=== PATIENT | female | born 1945 | race Caucasian/White ===

== ENCOUNTER 2024-10-31 07:50 | Outpatient (AMB) | payer MEDICARE, BC, SELFPAY ==
[2024-10-31 08:04] VITALS: BP 170/92; PULSE 61; RESP 18; TEMP 36.6; O2SAT 99; BMI 22.0
--- NOTE | 2024-10-31 08:04 | PD.ORTHCLVIS ---
Vital signs 10/31/24 08:04 Height 1.6 m Height Method Stated Weight 56.387 kg Weight Measurement Method Standing Scale BMI 22.0 BP 170/92 H Blood Pressure Source Automatic Cuff Blood Pressure Location Right Upper Arm Position Sitting Respiration 18 Pulse 61 Pulse Source Monitor Temp 97.8 F Temp Source Temporal Artery Scan Pulse Oximetry (%) 99 Oxygen Delivery Method Room Air Med/Allergies Allergies & Medications Allergies Penicillins Allergy (Intermediate, Verified 10/31/24 08:05) Hives Medication Reconciliation losartan 50 mg tablet 50 mg PO QDAY 08/18/24 [History Confirmed 10/31/24] Exam Exam Patient is in no acute distress and is cooperative with the examination today. Breathing is nonlabored. In no respiratory distress. Patient has no paraspinal tenderness. Spinal deformity [cannot] be appreciated. The gait of the patient is [nonantalgic] Bilateral extremities were evaluated and demonstrates sensation intact to light touch. Palpable pedal pulses are present. No significant edema is present. Bilateral knees were examined and the patient has full strength and range of motion.. The left hip was examined. Patient was able to flex to 90 degrees, adduct to 30 degrees, abduct to 40 degrees, internally rotate to 20 degrees, and externally rotate to 20 degrees. Patient has a negative logroll. Stinchfield is negative. The patient is nontender diffusely to touch. The right hip was examined. Patient has a positive logroll Right knee demonstrates range of motion from 0 to 110 degrees. There is some laxity in the medial lateral plane. It also has AP instability X-rays demonstrated a cementless right total knee replacement in good alignment position. I do not see any evidence of loosening. Right hip x-rays demonstrate severe arthritis with complete joint space narrowing. There is also an extensive spine fusion that can be visualized Assessment and Plan Problem List (1) Arthritis of right knee: Status: Acute (2) Arthritis of right hip: Status: Acute Plan: Patient is a 79-year-old female with a right hip arthritis of significant severity. She also has a painful right total knee replacement. We will start start by obtaining ESR and CRP. I would also like to see how much of the pain is from her hip and we will start with a cortisone injection of the right hip. I discussed with her that her right hip does feel like there is possibly some instability as well. We will see how much of this is contributing from the hip based on the injection. (3) Painful total knee replacement, right: Status: Acute Advanced Care Planning Discussion Advance care planning discussed with:: patient Office Procedures GNS Level of Care Nursing/Assessment Patient Status: Established Patient Nursing Assessment/Reassesment: Medication Reconciliation, Update PMH in EMR and Vital Signs Coordination of Care: Complex Care and Chronic Disease 1-5, Education Complex Pt/Fam, Consent,records obtained, informed consent, Results/Orders obtained and Staff clarify orders Established Patient Charge Established Patient Point Assignment: 95 Established Patient Point Charge: EP Level 3 (80-115) MA Intake Visit Data Collection New Patient or Established: Established Patient (seen at [facility] within 3 years) Reason for Visit:: HIP & KNEE PAIN Seen by Clinical Staff ONLY (RN/MA): No Verbal consent obtained for Telemed visit?: No Rubber Turner Required: No PCP or OBGYN visit in last 3 months: Yes Hx Now: No Do You Feel Safe at Home: Yes Authorities Contacted: N/A Questionairres Past Medical History Past Medical History Have you ever been diagnosed with any of the following: Neurological Problems Seizures: No Cardiology Problems Hypercholesterolemia: Yes Congestive Heart Failure: No Hypertension: Yes Respiratory Problems Chronic Obstructive Pulmonary Disease (COPD): No Smoking: No Smoking Cessation Counseling: No Smoking Exposure: No Genital/Urinary Problems Renal Disease: No Musculoskeletal Problems Arthritis: Yes Head,Eye,Nose,Throat Problems Cataracts: Yes (bilaterally) Endocrine Problems Diabetes Mellitus Type 1: No Diabetes Mellitus Type 2: No Other Problems Blood Transfusions: No Blood Transfusion Reaction: No Anesthesia Reactions: No Chicken Pox: Yes Measles: Yes Surgical History Total Knee Replacement: Yes (2 YEARS AGO BY ) Subjective Visit Visit for: new patient, hip and knee Immunization / Flu Flu Vaccine in the Last 12 Months: Yes Flu Vaccine Exclusion Criteria: Already Received History of Present Illness Chief complaint: RIGHT HIP & KNEE PAIN Date of injury / onset of symptoms: YEARS Date of 1st surgery (if applicable): 2 YEARS AGO Patient is a pleasant 79-year-old female with right hip pain that has been ongoing for over a year. She also has right knee pain since her surgery 2 years ago done in [place]. The pain is more on the tibial side. She reports the knee never got better.The hip pain is in the groin. She was found to have significant right hip arthritis. She has a history of spine surgery and has an extensive fusion Pain Pain level (0-10): 8 Pain duration: ALL DAY Pain location: groin, anterior and posterior Pain quality: aching Pain timing: night, increases with activity and stairs Associated signs & symptoms: numbness and stiffness Ambulatory data Ambulatory device: none Treatments Improvement with previous injections: No Number of Physical Therapy sessions: 15 Improvement with PT: No Improvement with NSAIDS: yes Review of Systems Review of Systems: All systems negative unless otherwise noted in HPI.
== END 2024-10-31 08:35 | disposition home or self-care (01) ==
LOC: HODSRG 07:50
PROVIDERS: PCP Orthopaedic Surgery; Referring Provider Orthopaedic Surgery; Supervising Provider Orthopaedic Surgery Adult Reconstructive Orthopaedic Surgery; Visit Provider Orthopaedic Surgery Adult Reconstructive Orthopaedic Surgery
DX: M17.11 Unilateral primary osteoarthritis, right knee (principal); M16.11 Unilateral primary osteoarthritis, right hip; T84.84XA Pain due to internal orthopedic prosthetic devices, implants and grafts, initial encounter; Y84.9 Medical procedure, unspecified as the cause of abnormal reaction of the patient, or of later complication, without mention of misadventure at the time of the procedure; I10 Essential (primary) hypertension; E78.00 Pure hypercholesterolemia, unspecified
CPT/HCPCS: 99213; G0463

== ENCOUNTER → 2024-10-31 | Outpatient (CLI) | payer MEDICARE, BC, SELFPAY ==
[2024-10-31 09:51] LABS: Sed Rate (ESR) 11 mm/hr (0-30)
[2024-10-31 10:14] LABS: C-Reactive Protein 0.6 mg/dL (0.0-0.9)
== END | disposition home or self-care (01) ==
PROVIDERS: PCP Internal Medicine; Referring Provider Orthopaedic Surgery Adult Reconstructive Orthopaedic Surgery; Visit Provider Orthopaedic Surgery Adult Reconstructive Orthopaedic Surgery
DX: M25.561 Pain in right knee (principal)
CPT/HCPCS: 36415; 85652; 86140

== ENCOUNTER 2024-12-14 14:49 | Outpatient (AMB) | payer MEDICARE, BC, SELFPAY ==
[2024-12-14 15:09] VITALS: BP 147/86; PULSE 56; RESP 18; TEMP 35.6; O2SAT 97; BMI 22.1
--- NOTE | 2024-12-14 15:09 | PD.ORTHCLVIS ---
Vital signs 12/14/24 15:09 Height 1.6 m Height Method Stated Weight 56.784 kg Weight Measurement Method Standing Scale BMI 22.1 BP 147/86 H Blood Pressure Source Automatic Cuff Blood Pressure Location Right Upper Arm Position Sitting Respiration 18 Pulse 56 L Pulse Source Monitor Temp 96.1 F L Temp Source Temporal Artery Scan Pulse Oximetry (%) 97 Oxygen Delivery Method Room Air Med/Allergies Allergies & Medications Allergies Penicillins Allergy (Intermediate, Verified 12/14/24 15:11) Hives Medication Reconciliation losartan 50 mg tablet 50 mg PO QDAY 08/18/24 [History Confirmed 12/14/24] Exam Exam Patient is in no acute distress and is cooperative with the examination today. Breathing is nonlabored. In no respiratory distress. Patient has no paraspinal tenderness. Spinal deformity [cannot] be appreciated. The gait of the patient is [nonantalgic] Bilateral extremities were evaluated and demonstrates sensation intact to light touch. Palpable pedal pulses are present. No significant edema is present. Bilateral knees were examined and the patient has full strength and range of motion.. The left hip was examined. Patient was able to flex to 90 degrees, adduct to 30 degrees, abduct to 40 degrees, internally rotate to 20 degrees, and externally rotate to 20 degrees. Patient has a negative logroll. Stinchfield is negative. The patient is nontender diffusely to touch. The right hip was examined. Patient has a positive logroll Right knee demonstrates range of motion from 0 to 110 degrees. There is some laxity in the medial lateral plane. It also has AP instability X-rays demonstrated a cementless right total knee replacement in good alignment position. I do not see any evidence of loosening. Right hip x-rays demonstrate severe arthritis with complete joint space narrowing. There is also an extensive spine fusion that can be visualized Assessment and Plan Problem List (1) Painful total knee replacement, right: Status: Acute (2) Arthritis of right knee: Status: Acute (3) Arthritis of right hip: Status: Acute Plan: Patient is a 79-year-old female with a right hip arthritis of significant severity. She has a normal ESR and CRP. I am fairly certain her knee pain is caused by her hip. We will order a diagnostic hip injection with cortisone Advanced Care Planning Discussion Advance care planning discussed with:: patient Office Procedures GNS Level of Care Nursing/Assessment Patient Status: Established Patient Nursing Assessment/Reassesment: Medication Reconciliation, Update PMH in EMR and Vital Signs Coordination of Care: Complex Care and Chronic Disease 1-5, Education Complex Pt/Fam, Consent,records obtained, informed consent, Results/Orders obtained and Staff clarify orders Established Patient Charge Established Patient Point Assignment: 95 Established Patient Point Charge: EP Level 3 (80-115) MA Intake Visit Data Collection New Patient or Established: Established Patient (seen at [facility] within 3 years) Reason for Visit:: FOLLOW UP RIGHT KNEE PAIN Seen by Clinical Staff ONLY (RN/MA): No Boom Master Required: No PCP or OBGYN visit in last 3 months: Yes Hx Now: No Do You Feel Safe at Home: Yes Authorities Contacted: N/A Questionairres Past Medical History Past Medical History Have you ever been diagnosed with any of the following: Neurological Problems Seizures: No Cardiology Problems Hypercholesterolemia: Yes Congestive Heart Failure: No Hypertension: Yes Respiratory Problems Chronic Obstructive Pulmonary Disease (COPD): No Smoking: No Smoking Cessation Counseling: No Smoking Exposure: No Genital/Urinary Problems Renal Disease: No Musculoskeletal Problems Arthritis: Yes Head,Eye,Nose,Throat Problems Cataracts: Yes (bilaterally) Endocrine Problems Diabetes Mellitus Type 1: No Diabetes Mellitus Type 2: No Other Problems Blood Transfusions: No Blood Transfusion Reaction: No Anesthesia Reactions: No Chicken Pox: Yes Measles: Yes Surgical History Total Knee Replacement: Yes (2 YEARS AGO BY ) Subjective Visit Visit for: follow up visit and knee Immunization / Flu Flu Vaccine in the Last 12 Months: Yes Flu Vaccine Exclusion Criteria: Already Received History of Present Illness Chief complaint: Right hip pain Continue is a pleasant 79-year-old female with a painful right knee replacement and right hip pain groin pain. We ordered a prior ESR and CRP to see normal. We try to figure out how much of the pain is coming from the hip versus the knee. I do suspect that her severe hip arthritis is causing her knee pain. Pain Associated signs & symptoms: none Ambulatory data Ambulatory device: none Treatments Improvement with previous injections: No Improvement with PT: No Improvement with NSAIDS: no Review of Systems Review of Systems: All systems negative unless otherwise noted in HPI.
== END 2024-12-14 15:40 | disposition home or self-care (01) ==
LOC: HODSRG 14:49
PROVIDERS: PCP Internal Medicine; Referring Provider Internal Medicine; Supervising Provider Orthopaedic Surgery Adult Reconstructive Orthopaedic Surgery; Visit Provider Orthopaedic Surgery Adult Reconstructive Orthopaedic Surgery
DX: M17.11 Unilateral primary osteoarthritis, right knee (principal); M16.11 Unilateral primary osteoarthritis, right hip; T84.84XD Pain due to internal orthopedic prosthetic devices, implants and grafts, subsequent encounter; Y84.9 Medical procedure, unspecified as the cause of abnormal reaction of the patient, or of later complication, without mention of misadventure at the time of the procedure; Z96.651 Presence of right artificial knee joint; I10 Essential (primary) hypertension; E78.00 Pure hypercholesterolemia, unspecified
CPT/HCPCS: 99213; G0463

== ENCOUNTER → 2025-01-03 | Outpatient (CLI) | payer MEDICARE, BC, SELFPAY ==
[2025-01-03 09:01] LABS: Albumin, Serum 4.2 gm/dL (3.4-4.8); Anion Gap 7 (7-16); BUN/Creatinine Ratio 20 Ratio (12-20); Blood Urea Nitrogen 18 mg/dL (9-23); Calcium 9.5 mg/dL (8.3-10.6); Calcium (Corrected) 9.5 mg/dL (8.5-10.1); Carbon Dioxide 30.1 mMol/L (20.0-31.0); Chloride 109 mMol/L (98-107); Creatinine (Component) 0.9 mg/dL (0.6-1.3); Glucose 95 mg/dL (74-106); Osmolality,Calculated 292 (275-295); Phosphorous 4.1 mg/dL (2.4-5.1); Potassium 4.3 mMol/L (3.4-5.1); Sodium 146 mMol/L (136-145); eGFR > 60 See Note
== END | disposition home or self-care (01) ==
LOC: COPL 07:39
PROVIDERS: PCP Internal Medicine; Referring Provider Internal Medicine; Visit Provider Internal Medicine
DX: I10 Essential (primary) hypertension (principal)
CPT/HCPCS: 36415; 80069

== ENCOUNTER → 2025-01-04 | Outpatient (CLI) | payer MEDICARE, BC, SELFPAY ==
--- NOTE | 2025-01-04 13:00 | XR_ITS ---
Examination: Steroid injection right hip joint with imaging guidance Fluoroscopy AP right hip single view. Exam date and time: January 04, 2025 1244 hrs. Indications: Diagnosis primary right hip unilateral osteoarthritis, hip pain several months Informed consent provided. Technique: A timeout was completed verifying correct patient, procedure, site, positioning. The patient was placed in supine position appropriate for the steroid injection The patient's site was prepped and draped in sterile fashion 5 cc 1% lidocaine administered locally for anesthesia. Sterile drape applied, maximum barrier sterile technique. Utilizing fluoroscopic guidance, 23-gauge needle placed in the right hip joint 1 cc Kenalog 40 in 5 cc 0.25% Marcaine introduced into the right hip joint The patient was in satisfactory and stable condition on completion of the procedure Attending radiologist was present for the entire procedure Estimated blood loss 0 cc. Impression: Successful steroid injection right hip joint with imaging guidance Fluoroscopy 0.1 minute radiation dose 0.76 milligray 1 spot fluoroscopic chest film
== END | disposition home or self-care (01) ==
LOC: SIRX 12:32
PROVIDERS: PCP Internal Medicine; Referring Provider Orthopaedic Surgery Adult Reconstructive Orthopaedic Surgery; Visit Provider Orthopaedic Surgery Adult Reconstructive Orthopaedic Surgery
DX: M16.11 Unilateral primary osteoarthritis, right hip (principal)
CPT/HCPCS: 20610; 77002

== ENCOUNTER 2025-04-06 07:51 | Outpatient (AMB) | payer MEDICARE, BC, SELFPAY ==
--- NOTE | 2025-04-06 08:02 | ORTHONT_ITS ---
Vital signs 04/06/25 08:03 Height 1.6 m Height Method Stated Weight 55.338 kg Weight Measurement Method Standing Scale BMI 21.6 BP 155/84 H Blood Pressure Source Automatic Cuff Blood Pressure Location Right Upper Arm Position Sitting Respiration 18 Pulse 55 L Pulse Source Monitor Temp 97.9 F Temp Source Temporal Artery Scan Pulse Oximetry (%) 95 Oxygen Delivery Method Room Air Med/Allergies Allergies & Medications Allergies Penicillins Allergy (Intermediate, Verified 04/06/25 08:05) Hives Medication Reconciliation losartan 50 mg tablet 50 mg PO QDAY 08/18/24 [History Confirmed 04/06/25] meloxicam 7.5 mg tablet 7.5 mg PO QDAY #45 tabs 04/06/25 [Rx] Exam Exam Patient is in no acute distress and is cooperative with the examination today. Breathing is nonlabored. In no respiratory distress. Patient has no paraspinal tenderness. Spinal deformity [cannot] be appreciated. The gait of the patient is [nonantalgic] Bilateral extremities were evaluated and demonstrates sensation intact to light touch. Palpable pedal pulses are present. No significant edema is present. Bilateral knees were examined and the patient has full strength and range of motion.. The left hip was examined. Patient was able to flex to 90 degrees, adduct to 30 degrees, abduct to 40 degrees, internally rotate to 20 degrees, and externally rotate to 20 degrees. Patient has a negative logroll. Stinchfield is negative. The patient is nontender diffusely to touch. The right hip was examined. Patient has a positive logroll Right knee demonstrates range of motion from 0 to 110 degrees. There is some laxity in the medial lateral plane. It also has AP instability X-rays demonstrated a cementless right total knee replacement in good alignment position. I do not see any evidence of loosening. Right hip x-rays demonstrate severe arthritis with complete joint space narrowing. There is also an extensive spine fusion that can be visualized Assessment and Plan Problem List (1) Painful total knee replacement, right: Status: Acute (2) Arthritis of right knee: Status: Acute (3) Arthritis of right hip: Status: Acute Plan: Patient is a 79-year-old female with a right hip arthritis of significant severity. She has a normal ESR and CRP. I am fairly certain her knee pain is caused by her hip. Her hip pain also went away as well as her knee pain with a cortisone injection. We thus discussed total hip replacement is a reasonable option. She has failed conservative treatment including anti-inflammatories and activity modification. We thus discussed total hip replacement is reasonable option. I would perform this through an anterior approach. The nature and purpose of the total hip replacement, alternative method(s) of treatment, the material risks involved, and the possibility of complications were fully explained to the patient. The patient does NOT have any of the following contraindications to ALMA: - Active infection of the hip joint, OR - Active systemic bacteremia, OR - Active skin infection or open wound at surgical site, OR - Neuropathic arthritis, OR - Severe, rapidly progressive neurological disease, OR - Severe medical condition that makes risks of the surgery outweigh the potential benefit The patient was told the most common risks and complications associated with a total hip replacement include, but are not limited to: blood clots in the leg, fatal pulmonary embolism, dislocation of the prosthesis, intraoperative and postoperative fractures of the femur or acetabulum, infection, failure of the prosthesis or grafting materials, complications from anesthesia, reactions to blood transfusions, postoperative leg length inequality, instability of the hip replacement, nerve damage or injury, vascular injury, delayed wound healing, infection, other injury or even . In addition, there are risks associated with anesthesia given during this operation. Also, the patient was told that after undergoing a total hip replacement there may still be persistent pain or disability. The patient was informed that the success of this operation in part depends upon the mechanical devices which are going to be implanted and that these devices can fail or malfunction, and may need to be repaired or replaced and there are no guarantees as to the longevity of this device or its parts and that it or its parts could fail prematurely. The patient was also notified that during the course of surgery, there may be a need to use bone graft from donors, and that any bone graft used will be carefully screened for communicable diseases, including AIDS, hepatitis, Rusty-Creutzfeldt, or other diseases, but despite the screening procedures, there is a small chance that they could contract one of these diseases. Finally, the patient was asked to follow completely and fully with all advice and recommended treatments, and that recovery and ultimate outcome are affected by their compliance with recommended treatment. We discussed the risks, benefits and treatment alternatives, and the patient is interested in proceeding with surgery. We will try to set this up as expeditiously as possible. Advanced Care Planning Discussion Advance care planning discussed with:: patient Office Procedures GNS Level of Care Nursing/Assessment Patient Status: Established Patient Nursing Assessment/Reassesment: Medication Reconciliation, Update PMH in EMR and Vital Signs Coordination of Care: Complex Care and Chronic Disease 1-5, Education Complex Pt/Fam, Consent,records obtained, informed consent, 1 Ins Authorization, Results/Orders obtained and Staff clarify orders Established Patient Charge Established Patient Point Assignment: 110 Established Patient Point Charge: EP Level 3 (80-115) MA Intake Visit Data Collection New Patient or Established: Established Patient (seen at [facility] within 3 years) Reason for Visit:: REQ HIP SX Seen by Clinical Staff ONLY (RN/MA): No Verbal consent obtained for Telemed visit?: No New Client Banking Services Clerk Required: No PCP or OBGYN visit in last 3 months: Yes Hx Now: No Do You Feel Safe at Home: Yes Authorities Contacted: N/A Questionairres Past Medical History Past Medical History Have you ever been diagnosed with any of the following: Neurological Problems Seizures: No Cardiology Problems Hypercholesterolemia: Yes Congestive Heart Failure: No Hypertension: Yes Respiratory Problems Chronic Obstructive Pulmonary Disease (COPD): No Smoking: No Smoking Cessation Counseling: No Smoking Exposure: No Genital/Urinary Problems Renal Disease: No Musculoskeletal Problems Arthritis: Yes Head,Eye,Nose,Throat Problems Cataracts: Yes (bilaterally) Endocrine Problems Diabetes Mellitus Type 1: No Diabetes Mellitus Type 2: No Other Problems Blood Transfusions: No Blood Transfusion Reaction: No Anesthesia Reactions: No Chicken Pox: Yes Measles: Yes Surgical History Total Knee Replacement: Yes (2 YEARS AGO BY ) Subjective Visit Visit for: follow up visit and hip Immunization / Flu Flu Vaccine in the Last 12 Months: No Flu Vaccine Exclusion Criteria: No Exclusion Criteria History of Present Illness Chief complaint: Requesting hip surgery Continue is a pleasant 79-year-old female with a painful right knee replacement and right hip pain groin pain. She had a right hip injection 3 months ago and this provided dramatic relief. She reports all the pain in her knee actually went away as well. She reports that she had complete pain relief for about 3 months and is now starting to wear off Personal History Occupation: retired [employer] PMH: none Pain Pain level (0-10): 7 Pain duration: all day Pain location: groin and anterior Pain quality: sharp, dull and aching Pain timing: increases with activity Associated signs & symptoms: stiffness (knee) Ambulatory data Ambulatory device: none Treatments Number of previous injections: 1 Improvement with previous injections: Yes Improvement with PT: No Improvement with NSAIDS: no Review of Systems Review of Systems: All systems negative unless otherwise noted in HPI.
[2025-04-06 08:03] VITALS: BP 155/84; PULSE 55; RESP 18; TEMP 36.6; O2SAT 95; BMI 21.6
--- NOTE | 2025-04-06 08:22 | XR_ITS ---
Examination:Right hip AP, lateral, AP pelvis 3 views Technique: Hip AP lateral, AP pelvis, 3 views Exam date and time:April 06, 2025 0835 hours INDICATIONS: Right hip pain 2 years. FINDINGS: Advanced right hip osteoarthritis, severe narrowing right hip joint No hip fracture Moderate narrowing left hip joint Bones of the pelvis intact Prominent osteopenia IMPRESSION: Advanced right hip osteoarthritis.
== END 2025-04-06 08:33 | disposition home or self-care (01) ==
LOC: HODSRG 07:51
PROVIDERS: PCP Internal Medicine; Referring Provider Internal Medicine; Supervising Provider Orthopaedic Surgery Adult Reconstructive Orthopaedic Surgery; Visit Provider Orthopaedic Surgery Adult Reconstructive Orthopaedic Surgery
DX: T84.84XD Pain due to internal orthopedic prosthetic devices, implants and grafts, subsequent encounter (principal); Y84.9 Medical procedure, unspecified as the cause of abnormal reaction of the patient, or of later complication, without mention of misadventure at the time of the procedure; M17.11 Unilateral primary osteoarthritis, right knee; M16.11 Unilateral primary osteoarthritis, right hip; I10 Essential (primary) hypertension; E78.00 Pure hypercholesterolemia, unspecified; M25.551 Pain in right hip
CPT/HCPCS: 73502; 99213; G0463

== ENCOUNTER → 2025-04-19 | Outpatient (CLI) | payer MEDICARE, BC, SELFPAY ==
[2025-04-19 10:14] LABS: Collection Type, Urine Clean Catch
[2025-04-19 10:39] LABS: Basophils # (Auto) 0.1 Thou/mm3 (0.0-0.2); Basophils % (Auto) 1 % (0-2.5); Eosinophils # (Auto) 0.1 Thou/mm3 (0.0-0.5); Eosinophils % (Auto) 2 % (0-10); Hematocrit 40.2 % (36.0-46.0); Hemoglobin 13.6 g/dL (12.0-16.0); Immature Granulocytes % (Auto) 0 % (0-0); Immature Granulocytes Auto 0.01 Thou/mm3 (0.00-0.00); Lymphocytes # (Auto) 1.6 Thou/mm3 (1.0-4.8); Lymphocytes % (Auto) 30 % (10-50); Mean Corpuscular HGB Conc 33.8 g/dl (31.0-37.0); Mean Corpuscular Volume 89 fL (80-100); Monocytes # (Auto) 0.4 Thou/mm3 (0.0-0.8); Monocytes % (Auto) 8 % (0-12); Neutrophils # (Auto) 3.1 Thou/mm3 (1.8-7.7); Neutrophils % (Auto) 59 % (37-80); Nucleated Red Blood Cell % 0 /100 WBC (0); Platelet Count 279 Thou/mm3 (140-440); RDW Standard Deviation 40.5 fL (36.4-46.3); Red Blood Count 4.54 Miln/mm3 (4.00-5.20); White Blood Count 5.2 Thou/mm3 (3.6-11.0)
[2025-04-19 10:47] LABS: Bilirubin,Urine Negative (Negative); Blood,Urine Negative (Negative); Clarity,Urine Clear (Clear/Hazy); Color,Urine Yellow (Lt Yel-Yel); Glucose, Urine Negative (Negative); Ketones,Urine Negative (Negative); Leukocyte Esterase,Urine Negative (Negative); Nitrite,Urine Negative (Negative); PH,Urine 6.5 (5.0-7.0); Protein,Urine Trace (Neg - Trace); RBC,Urine 8 /hpf (0-3); Specific Gravity,Urine 1.024 (1.001-1.035); Squamous Epithelial Cell,Urine 1 /hpf (0-5); Urobilinogen,Urine Negative mg/dL (0.0-1.0); WBC,Urine 1 /hpf (0-5)
[2025-04-19 10:52] LABS: Alanine Aminotransferase 24 U/L (10-49); Albumin, Serum 4.3 gm/dL (3.4-4.8); Albumin/Globulin Ratio 1.9 (1.2-2.2); Alkaline Phosphatase 69 U/L (46-116); Anion Gap 5 (7-16); Aspartate Amino Transferase 23 U/L (0-34); BUN/Creatinine Ratio 13 Ratio (12-20); Blood Urea Nitrogen 12 mg/dL (9-23); Calcium 8.9 mg/dL (8.3-10.6); Calcium (Corrected) 8.9 mg/dL (8.5-10.1); Carbon Dioxide 28.6 mMol/L (20.0-31.0); Chloride 108 mMol/L (98-107); Creatinine (Component) 0.9 mg/dL (0.6-1.3); Globulin 2.3 gm/dL (2.3-3.5); Glucose 99 mg/dL (74-106); Osmolality,Calculated 282 (275-295); Partial Thromboplastin Time 26.2 Seconds (22.0-36.0); Potassium 4.3 mMol/L (3.4-5.1); Prothrombin Time 10.7 Seconds (9.0-12.2); Sodium 142 mMol/L (136-145); Total Protein 6.6 gm/dL (5.7-8.2); eGFR > 60 See Note
== END | disposition home or self-care (01) ==
LOC: COPL 09:36
PROVIDERS: PCP Internal Medicine; Referring Provider Orthopaedic Surgery Adult Reconstructive Orthopaedic Surgery; Visit Provider Orthopaedic Surgery Adult Reconstructive Orthopaedic Surgery
DX: Z01.818 Encounter for other preprocedural examination (principal); I10 Essential (primary) hypertension; M25.561 Pain in right knee
CPT/HCPCS: 36415; 80053; 81001; 85025; 85610; 85730

== ENCOUNTER 2025-05-01 12:54 | Outpatient (AMB) | payer MEDICARE, BC, SELFPAY ==
--- NOTE | 2025-05-01 13:11 | ORTHONT_ITS ---
Vital signs 05/01/25 13:12 Height 1.6 m Height Method Stated Weight 55.962 kg Weight Measurement Method Standing Scale BMI 21.8 BP 147/79 H Blood Pressure Source Automatic Cuff Blood Pressure Location Right Upper Arm Position Sitting Respiration 18 Pulse 56 L Pulse Source Monitor Temp 97.7 F Temp Source Temporal Artery Scan Pulse Oximetry (%) 95 Oxygen Delivery Method Room Air Med/Allergies Allergies & Medications Allergies Penicillins Allergy (Intermediate, Verified 05/01/25 13:13) Hives Medication Reconciliation losartan 50 mg tablet 50 mg PO QDAY 08/18/24 [History Confirmed 05/01/25] meloxicam 7.5 mg tablet 7.5 mg PO QDAY #45 tabs 04/06/25 [Rx Confirmed 05/01/25] Exam Exam Patient is in no acute distress and is cooperative with the examination today. Breathing is nonlabored. In no respiratory distress. Patient has no paraspinal tenderness. Spinal deformity [cannot] be appreciated. The gait of the patient is [nonantalgic] Bilateral extremities were evaluated and demonstrates sensation intact to light touch. Palpable pedal pulses are present. No significant edema is present. Bilateral knees were examined and the patient has full strength and range of motion.. The left hip was examined. Patient was able to flex to 90 degrees, adduct to 30 degrees, abduct to 40 degrees, internally rotate to 20 degrees, and externally rotate to 20 degrees. Patient has a negative logroll. Stinchfield is negative. The patient is nontender diffusely to touch. The right hip was examined. Patient has a positive logroll Right knee demonstrates range of motion from 0 to 110 degrees. There is some laxity in the medial lateral plane. It also has AP instability X-rays demonstrated a cementless right total knee replacement in good alignment position. I do not see any evidence of loosening. Right hip x-rays demonstrate severe arthritis with complete joint space narrowing. There is also an extensive spine fusion that can be visualized Assessment and Plan Problem List (1) Painful total knee replacement, right: Status: Acute (2) Arthritis of right knee: Status: Acute (3) Arthritis of right hip: Status: Acute Plan: Patient is a 79-year-old female with a right hip arthritis of significant severity. She has a normal ESR and CRP. I am fairly certain her knee pain is caused by her hip. Her hip pain also went away as well as her knee pain with a cortisone injection. We thus discussed total hip replacement is a reasonable option. She has failed conservative treatment including anti-inflammatories and activity modification. We thus discussed total hip replacement is reasonable option. I would perform this through an anterior approach. I would plan to do this with dual mobility implants. The nature and purpose of the total hip replacement, alternative method(s) of treatment, the material risks involved, and the possibility of complications were fully explained to the patient. The patient does NOT have any of the following contraindications to ALMA: - Active infection of the hip joint, OR - Active systemic bacteremia, OR - Active skin infection or open wound at surgical site, OR - Neuropathic arthritis, OR - Severe, rapidly progressive neurological disease, OR - Severe medical condition that makes risks of the surgery outweigh the potential benefit The patient was told the most common risks and complications associated with a total hip replacement include, but are not limited to: blood clots in the leg, fatal pulmonary embolism, dislocation of the prosthesis, intraoperative and postoperative fractures of the femur or acetabulum, infection, failure of the prosthesis or grafting materials, complications from anesthesia, reactions to blood transfusions, postoperative leg length inequality, instability of the hip replacement, nerve damage or injury, vascular injury, delayed wound healing, infection, other injury or even . In addition, there are risks associated with anesthesia given during this operation. Also, the patient was told that after undergoing a total hip replacement there may still be persistent pain or disability. The patient was informed that the success of this operation in part depends upon the mechanical devices which are going to be implanted and that these devices can fail or malfunction, and may need to be repaired or replaced and there are no guarantees as to the longevity of this device or its parts and that it or its parts could fail prematurely. The patient was also notified that during the course of surgery, there may be a need to use bone graft from donors, and that any bone graft used will be carefully screened for communicable diseases, including AIDS, hepatitis, Rusty-Creutzfeldt, or other diseases, but despite the screening procedures, there is a small chance that they could contract one of these diseases. Finally, the patient was asked to follow completely and fully with all advice and recommended treatments, and that recovery and ultimate outcome are affected by their compliance with recommended treatment. We discussed the risks, benefits and treatment alternatives, and the patient is interested in proceeding with surgery. We will try to set this up as expeditiously as possible. Advanced Care Planning Discussion Advance care planning discussed with:: patient Office Procedures GNS Level of Care Nursing/Assessment Patient Status: Established Patient Nursing Assessment/Reassesment: Medication Reconciliation, Update PMH in EMR and Vital Signs Coordination of Care: Complex Care and Chronic Disease 1-5, Education Complex Pt/Fam, Consent,records obtained, informed consent, Results/Orders obtained and Staff clarify orders Established Patient Charge Established Patient Point Assignment: 95 Established Patient Point Charge: EP Level 3 (80-115) MA Intake Visit Data Collection New Patient or Established: Established Patient (seen at [facility] within 3 years) Reason for Visit:: PRE-OP FOLLOW UP Seen by Clinical Staff ONLY (RN/MA): No Verbal consent obtained for Telemed visit?: No Senior Business Consultant Required: No PCP or OBGYN visit in last 3 months: Yes Hx Now: No Do You Feel Safe at Home: Yes Authorities Contacted: N/A Questionairres Past Medical History Past Medical History Have you ever been diagnosed with any of the following: Neurological Problems Seizures: No Cardiology Problems Hypercholesterolemia: Yes Congestive Heart Failure: No Hypertension: Yes Respiratory Problems Chronic Obstructive Pulmonary Disease (COPD): No Smoking: No Smoking Cessation Counseling: No Smoking Exposure: No Genital/Urinary Problems Renal Disease: No Musculoskeletal Problems Arthritis: Yes Head,Eye,Nose,Throat Problems Cataracts: Yes (bilaterally) Endocrine Problems Diabetes Mellitus Type 1: No Diabetes Mellitus Type 2: No Other Problems Blood Transfusions: No Blood Transfusion Reaction: No Anesthesia Reactions: No Chicken Pox: Yes Measles: Yes Surgical History Total Knee Replacement: Yes (2 YEARS AGO BY ) Subjective Visit Visit for: follow up visit, hip and knee Immunization / Flu Flu Vaccine in the Last 12 Months: No Flu Vaccine Exclusion Criteria: No Exclusion Criteria History of Present Illness Chief complaint: PRE OP RIGHT ALMA/FOLLOW UP CLEARANCE Continue is a pleasant 79-year-old female with a painful right knee replacement and right hip pain groin pain. She had a right hip injection 3 months ago and this provided dramatic relief. She reports all the pain in her knee actually went away as well. She reports that she had complete pain relief for about 3 m onths and is now starting to wear off. Personal History Occupation: RETIRED Red flag PMH: none Pain Pain level (0-10): 7 Pain duration: CONSTANT Pain location: inside (medial), outside (lateral), anterior and posterior Pain quality: sharp, dull and aching Pain timing: increases with activity Associated signs & symptoms: stiffness Ambulatory data Ambulatory device: none Treatments Number of previous injections: 1 Improvement with previous injections: No Improvement with PT: No Improvement with NSAIDS: no Review of Systems Review of Systems: All systems negative unless otherwise noted in HPI.
[2025-05-01 13:12] VITALS: BP 147/79; PULSE 56; RESP 18; TEMP 36.5; O2SAT 95; BMI 21.8
== END 2025-05-01 13:31 | disposition home or self-care (01) ==
LOC: HODSRG 12:54
PROVIDERS: PCP Internal Medicine; Referring Provider Internal Medicine; Supervising Provider Orthopaedic Surgery Adult Reconstructive Orthopaedic Surgery; Visit Provider Orthopaedic Surgery Adult Reconstructive Orthopaedic Surgery
DX: T84.84XD Pain due to internal orthopedic prosthetic devices, implants and grafts, subsequent encounter (principal); M17.11 Unilateral primary osteoarthritis, right knee; M16.11 Unilateral primary osteoarthritis, right hip; I10 Essential (primary) hypertension; E78.00 Pure hypercholesterolemia, unspecified
CPT/HCPCS: 99213; G0463

== ENCOUNTER → 2025-05-01 | Outpatient (CLI) | payer MEDICARE, BC, SELFPAY ==
--- NOTE | 2025-05-01 09:15 | XR_ITS ---
Examination: Screening digital mammography, bilateral Computer aided detection 3-D breast Tomosynthesis, bilateral Date and time of exam: May 01, 2025 0902 hours Compared to mammograms dating to June 20, 2018 Indication: Screening Technique: Nonmagnified MLO, CC views of the breasts to been obtained, reconstructed from 3-D Tomosynthesis images. R2 computer aided detection program utilized for evaluation of suspicious masses and/or abnormal calcifications. 3-D Tomosynthesis images obtained. Findings: The breasts are heterogeneously dense, which may obscure small masses 20 mm focal asymmetry inner upper right breast Impression: BI-RADS Category 0: Incomplete: Need additional imaging evaluation Recommend follow-up spot tomographic views of 20 mm focal asymmetry inner upper right breast as well as bilateral breast sonography to complete the workup.
== END | disposition home or self-care (01) ==
PROVIDERS: PCP Internal Medicine; Referring Provider Internal Medicine; Visit Provider Internal Medicine
DX: Z12.31 Encounter for screening mammogram for malignant neoplasm of breast (principal); N64.89 Other specified disorders of breast
CPT/HCPCS: 77063; 77067

== ENCOUNTER → 2025-05-16 | Outpatient (CLI) | payer MEDICARE, BC, SELFPAY ==
--- NOTE | 2025-05-16 08:00 | XR_ITS ---
Examination: CT lower extremities without contrast. 2-D sagittal reconstructions. 2-D coronal reconstructions. 3-D reconstructions. Date and time of exam:May 16, 2025 0833 hours INDICATIONS: Diagnosis unilateral primary osteoarthritis right hip, right hip pain one year CTDI: vol (mGy):8.92 DLP: (mGycm):476 Technique: Multiple 1.25 mm axial sections of the bilateral lower extremities without intravenous contrast have been obtained. 2-D sagittal and coronal reconstructions have been obtained. 3-D reconstructions have been obtained. Low dose protocols were performed. One or more of the following dose reduction techniques were used; automated exposure control, adjustment of the mA and/or KV according to patient size, use of iterative reconstruction technique. Findings: Severe osteopenia Advanced right hip osteoarthritis, severe joint space narrowing [id number] No right hip fracture Moderate osteoarthritis left hip joint No fracture Total right knee arthroplasty. Satisfactory alignment. No loosening of the prosthetic components Moderate to advanced narrowing medial joint space left knee, moderate narrowing lateral patellofemoral joints left knee IMPRESSION: Advanced right hip osteoarthritis, severe joint space narrowing [id number]
== END | disposition home or self-care (01) ==
LOC: CCTX 08:18
PROVIDERS: PCP Internal Medicine; Referring Provider Orthopaedic Surgery Adult Reconstructive Orthopaedic Surgery; Visit Provider Orthopaedic Surgery Adult Reconstructive Orthopaedic Surgery
DX: M16.11 Unilateral primary osteoarthritis, right hip (principal)
CPT/HCPCS: 72192; 73700

== ENCOUNTER 2025-05-23 05:40 | Day surgery (SDC) | payer MEDICARE, BC, SELFPAY ==
--- NOTE | 2025-05-22 06:50 | EKG_ITS ---
[facility] Test Date: 2025-05-22 Pat Name: MORGAN AVINA Department: Room: - Gender: Female Anesthesiology Crna: ELICEO : 1945 Requested By: Ish Fallon Order Number: [id number] Reading MD: Ish Fallon Measurements Intervals [place] Rate: 48 P: 56 ND: 161 QRS: -45 QRSD: 149 T: -31 QT: 450 QTc: 405 Interpretive Statements SINUS BRADYCARDIA RIGHT BUNDLE BRANCH BLOCK [120+ ms QRS DURATION, UPRIGHT V1, 40+ ms S IN I/aVL/V4/V5/V6] LEFT ANTERIOR FASCICULAR BLOCK [QRS AXIS <= -45, QR IN I, RS IN II] MODERATE T-WAVE ABNORMALITY, CONSIDER LATERAL ISCHEMIA [-0.1+ mV T WAVE IN I/aVL/V5/V6] MODERATE T-WAVE ABNORMALITY, CONSIDER INFERIOR ISCHEMIA [-0.1+ mV T WAVE IN II/aVF] Compared to ECG 05/11/2022 13:57:30 No significant changes /store/S0/[id number].pdf
[2025-05-22 08:14] VITALS: BMI 20.8
[2025-05-22 09:26] LABS: Basophils # (Auto) 0.1 Thou/mm3 (0.0-0.2); Basophils % (Auto) 1 % (0-2.5); Eosinophils # (Auto) 0.1 Thou/mm3 (0.0-0.5); Eosinophils % (Auto) 2 % (0-10); Hematocrit 41.2 % (36.0-46.0); Hemoglobin 14.0 g/dL (12.0-16.0); Immature Granulocytes Auto 0.02 Thou/mm3 (0.00-0.00); Lymphocytes # (Auto) 1.3 Thou/mm3 (1.0-4.8); Lymphocytes % (Auto) 21 % (10-50); Mean Corpuscular HGB Conc 34.0 g/dl (31.0-37.0); Mean Corpuscular Hemoglobin 30.0 pg (25.0-35.0); Mean Corpuscular Volume 88 fL (80-100); Monocytes # (Auto) 0.5 Thou/mm3 (0.0-0.8); Monocytes % (Auto) 8 % (0-12); Neutrophils # (Auto) 4.2 Thou/mm3 (1.8-7.7); Neutrophils % (Auto) 68 % (37-80); Nucleated Red Blood Cell # 0.00 Thou/mm3 (0.00-0.00); Nucleated Red Blood Cell % 0 /100 WBC (0); Platelet Count 279 Thou/mm3 (140-440); RDW Standard Deviation 39.8 fL (36.4-46.3); Red Blood Count 4.67 Miln/mm3 (4.00-5.20); White Blood Count 6.2 Thou/mm3 (3.6-11.0)
[2025-05-22 09:35] LABS: INR 1.0 (0.9-1.3); Partial Thromboplastin Time 27.3 Seconds (22.0-36.0); Prothrombin Time 10.6 Seconds (9.0-12.2)
[2025-05-22 09:38] LABS: Alanine Aminotransferase 13 U/L (10-49); Albumin, Serum 4.6 gm/dL (3.4-4.8); Albumin/Globulin Ratio 2.2 (1.2-2.2); Alkaline Phosphatase 81 U/L (46-116); Anion Gap 6 (7-16); Aspartate Amino Transferase 17 U/L (0-34); BUN/Creatinine Ratio 14 Ratio (12-20); Bilirubin,Total 2.1 mg/dL (0.3-1.2); Blood Urea Nitrogen 14 mg/dL (9-23); Calcium 10.2 mg/dL (8.3-10.6); Calcium (Corrected) 10.2 mg/dL (8.5-10.1); Carbon Dioxide 31.0 mMol/L (20.0-31.0); Chloride 105 mMol/L (98-107); Creatinine (Component) 1.0 mg/dL (0.6-1.3); Estimated Creatinine Clearance 40.7 mL/min (>60); Globulin 2.1 gm/dL (2.3-3.5); Glucose 100 mg/dL (74-106); Osmolality,Calculated 283 (275-295); Potassium 4.2 mMol/L (3.4-5.1); Sodium 142 mMol/L (136-145); Total Protein 6.7 gm/dL (5.7-8.2); eGFR 58 See Note
[2025-05-23] VITALS (12 sets, daily range): BP systolic 122–161; BP diastolic 61–90; PULSE 61–75; RESP 12–21; TEMP 36.2–36.5; O2SAT 95–100; BMI 20.7
[2025-05-23] MEDS: ACETAMINOPHEN 325 MG TABLET 650 MG PO (06:25)
[2025-05-23] MEDS: MELOXICAM 7.5 MG TABLET PO (06:26)
[2025-05-23] MEDS: PREGABALIN 75 MG CAPSULE PO (06:26)
--- NOTE | 2025-05-23 06:55 | XR_ITS ---
Examination: Right hip 4 views Fluoroscopy Date and time: May 23, 2025 1027 hours INDICATIONS: Total right hip arthroplasty today TECHNIQUE AND FINDINGS: 4 spot AP fluoroscopic films of the right hip Fluoroscopy 12.8 seconds radiation dose 0.5003 milligray Total right hip arthroplasty. Satisfactory alignment IMPRESSION: Total right hip arthroplasty with satisfactory alignment
--- NOTE | 2025-05-23 11:26 | ESOP_ITS ---
Date of Procedure 05/23/25 Pre Op Diagnosis right hip osteoarthritis Post Op Diagnosis right hip osteoarthritis Procedure right total hip replacement anterior Findings full thickness cartilage loss and osteophytes Procedure Description Indications: The patient is a 79 y.o. year-old female with a long standing history of right hip pain. After considering the patient's condition and the impact of their hip on the patient's quality of life and activities of daily living, total hip replacement was offered as a reasonable option. Prior to the surgery I discussed the nature of the total hip replacement surgery including alternatives to surgery and the purpose of, and indications for proceeding with surgery. I discussed that this is an elective operation and that the patient should carefully weigh their options before proceeding with surgery. I discussed that this surgery is a shared decision between the patient and the surgeon. Risks and benefits and alternatives of the procedure have been explained to the patient and their family. Anesthesia complications and risks include but are not limited to stroke, heart attack, and . The surgical risks include but are not limited to infection, instability/dislocation, bleeding, nerve and blood vessel injury, deep vein thrombosis, pulmonary embolus, stiffness, pain, scar, need for reoperation, leg length discrepancy, thigh numbness, weakness, and mechanical failure of the implant including loosening, metal complications, metal allergy, wear or breakage. I discussed the expected recovery from surgery and the importance of compliance with all our pre and post-operative recommendations in order to maximize the recovery. The patient understands the risks of loss of life, loss of limb and, loss of function and wishes to proceed. A signed and witnessed consent was obtained and placed in the chart. Procedure in Detail: The patient was identified in the preoperative area. A signed and witness consent was confirmed in the chart. The surgery team confirmed with the patient the operative plan and surgical site. The surgical site was confirmed by the patient and marked by the surgical team. The patient was given the opportunity to ask any further questions and all questions were answered. The patient was brought to the operating room where anesthesia was induced by the anesthesia team without incident. The patient was placed in the supine position on a HANA table with the feet well padded in the boots. All extremities were padded to ensure adequate protection. A timeout was performed prior to the procedure which verified the correct patient, positioning, operation to be performed, operative site, antibiotics, allergies, imaging, and any other concerns. All parties were in agreement. The operative site was cleaned and draped in the usual sterile fashion. A final timeout was performed with all parties in agreement. We first started by making a small incision superior to the ASIS ensuring to be on the table of the pelvis. We ensured that we were 2 fingerbreadths above the ASIS and hip. We placed 3 pins through a small incision and ensured that we were in the table. The pins were driven approximately 3 to 4 cm. The arrays were then placed on the contralateral side to face the camera. A anterior approach to the hip was utilized for the operative side. A 11cm skin incision was made just distal and lateral to the ASIS. This was taken down through skin and subcutaneous tissue using a 10 blade. Bleeding was controlled using electrocautery. The fascia was identified and split in line with the its fibers. The plane medial to the TFL was developed. Next the lateral femoral circumflex vessel was cauterized. The capsule over the femoral neck was exposed and a T shaped capsulotomy performed. The two leaflets were tagged. A femoral neck osteotomy was then performed and the head removed using the marker tool to aid in determining the appropriate neck length. The acetabular bone was then mapped.Acetabular retractors were placed and the cupped was reamed using the robot for alignment. We reamed line to line and good bleeding bone was obtained. We then placed a press fit triathlon cup getting proper version and inclination off of c-arm imaging. There was good press fit. The anterior rim of the cup well covered. One placed and confirmed below the rim of the inner cup followed by the liner which was confirmed fully seated circumferentially. Half of the joint injection was placed inferior and anterior to the acetabulum. Peripheral osteophytes were removed. Next the femur was exposed using the table and femoral elevator for assistance. For this case a capsular release was performed leaving the piriformis and rest of short external rotators intact. The canal was broached up until we obtained excellent axial and rotational stability and the hip was reduced. Fluoro was used to analog ic design architect limb length, offset, and stem size as well as the calibrations from the robot. Stability was assessed by externally rotating the foot to 90 deg and then extending the hip 30 degrees. There was no subluxation of the femoral head in that position. The hip was dislocated. The stem position and depth was adjusted as needed per the fluoro shot. The neck was planed to the level of the broach using the calcar planar and then the stem removed. The canal was irrigated and the calcar inspected. There was no evidence of fracture and the bone bed was in good condition. The real stem was inserted and then impacted to the prior level of the broach with good solid fit. The calcar was again inspected and in good condition. The real head was impacted onto a clean taper and the hip reduced again. C-arm confirmed reduction and no evidence of complication. The wound was irrigated with dilute betadine followed by saline lavage. Hemostasis was obtained and noted through all layers. The remained of the joint cocktail was injected avoiding posterior by the nerve. We ensured that all the pins were removed from the pelvis including any checkpoints. The capsule was repaired with 0-vlock. The fascia closed with #2 Quill. The subcutaneous tissues closed with 2-0 vlock followed by 3-0 monocryl, dermabond, and prineo The drapes were then taken down and the patient moved to the [facility]. Leg lengths were confirmed to be appropriate and the patient's lower extremities were warm and well perfused with brisk capillary refill and palpable pulses. The patient was then awoken, transferred to the [facility] and taken to the PACU in stable condition. They tolerated the procedure well. The patient's family/caregiviers were made aware of their condition. Final sponge and needle counts were correct x2. Implants: Finley trident 50 cup, MDM liner, -4 head, high offset 4 insignia Anesthesia GETA Implants adrianne Pathology / specimen None Pathology comment: none Estimated Blood Loss 150 Condition Stable Disposition same day Surgeon Law Mcbride MD Surgical Staff Operation Date: 05/23/25 07:30 Case Staff Anesthesiologist: Damion Hedrick RN First Assistant: Rozina Carlton
--- NOTE | 2025-05-23 11:29 | XR_ITS ---
Examination:Right hip AP, lateral, AP pelvis 3 views Technique: Hip AP lateral, AP pelvis, 3 views Exam date and time:May 23, 2025 1158 hours INDICATIONS: Postop hip replacement FINDINGS: Total right hip arthroplasty. Satisfactory alignment. Prominent osteopenia. Left hip bones of the pelvis intact IMPRESSION: Total right hip arthroplasty with satisfactory alignment.
--- NOTE | 2025-05-23 12:07 | SUR.PHASEI ---
pt lying in gurney with eyes closed, breathing unlabored, VSS, dressing to bilateral hips clean, dry, and intact, Xray at bedside, report from TONIO Bonner.
--- NOTE | 2025-05-23 12:38 | SUR.PHASEII ---
pt tolerating oral fluids without difficulty swallowing or n/v
--- NOTE | 2025-05-23 12:42 | SUR.PHASEII ---
report to Kailey, RN
[2025-05-23] MEDS: ONDANSETRON INJ 2 MG/ML INJ 2 ML 4 MG IVP (13:26)
--- NOTE | 2025-05-23 16:46 | SUR.PHASEI ---
1147: Pt received in [facility] via gurney. Pt groggy. Easily aroused with eye opening then drifts back to sleep. Resp even, unlabored. VS stable. Dressing to left hip dry, clean, intact. Dressing to right lateral hip dry, clean, intact. Bilateral pedal pulses palpable and regular. No c/o pain. 1207: Pt has been resting with no complaints voiced. Resp even, unlabored. VS stable. No c/o pain. Report to Angela ELIZALDE.
--- NOTE | 2025-05-23 16:52 | SUR.PHASEII ---
1242: Assumed care. Pt resting with no complaints at this time. VS stable. Dressings remain dry, clean, intact. Bilateral pedal pulses strong, regular. 1310: Physical Therapy here to assess pt. Was ambulated to restroom and voided with no problems. 1325: Physical Therapy reported pt could be discharged home. 1326: Pt has c/o nausea. Zofran given. 1340: Pt stated nausea is subsiding. Stated she needed a snack and felt her empty stomach was causing her nausea. Was provided jello which she consumed with no difficulty swallowing and no increase of nausea. 1400: Pt stated nausea has subsided and she felt much better. 1425: Pt and stated understanding of discharge instructions. Pt also instructed to pickers material handlers her prescriptions at [facility]. Pt discharged from [facility] in stable condition.
== END 2025-05-23 14:25 | disposition home or self-care (01) ==
PROVIDERS: Anesthesiology; PCP Internal Medicine; Referring Provider Orthopaedic Surgery Adult Reconstructive Orthopaedic Surgery; Visit Provider Orthopaedic Surgery Adult Reconstructive Orthopaedic Surgery
PROC: (CPT 27130; principal; 2025-05-23 07:30)
DX: M16.11 Unilateral primary osteoarthritis, right hip (principal); M25.761 Osteophyte, right knee; Z01.810 Encounter for preprocedural cardiovascular examination; E78.00 Pure hypercholesterolemia, unspecified; I10 Essential (primary) hypertension
CPT/HCPCS: 27130; C1776; 36415; 73502; 76000; 80053; 85025; 85610; 85730; 93005; 97162; A4217; A4649; C1713; J0690; J1100; J1885; J2405; J2704; J3010; J3490; J7999; A4648; A9270

== ENCOUNTER 2025-06-08 14:29 | Outpatient (AMB) | payer MEDICARE, BC, SELFPAY ==
--- NOTE | 2025-06-08 14:50 | ORTHONT_ITS ---
Vital signs 06/08/25 14:52 Height 1.63 m Height Method Stated Weight 55.14 kg Weight Measurement Method Estimated by Patient BMI 20.7 BP 132/75 H Blood Pressure Source Automatic Cuff Blood Pressure Location Left Upper Arm Position Sitting Respiration 18 Pulse 66 Pulse Source Monitor Temp 97.9 F Temp Source Temporal Artery Scan Pulse Oximetry (%) 98 Oxygen Delivery Method Room Air Med/Allergies Allergies & Medications Allergies Penicillins Allergy (Intermediate, Verified 06/08/25 14:53) Hives Medication Reconciliation losartan 50 mg tablet 50 mg PO QDAY 08/18/24 [History Confirmed 06/08/25] acetaminophen 500 mg tablet (Acetaminophen Extra Strength) 1,000 mg (2 x 500 mg) PO Q6H PRN pain #90 tabs 05/23/25 [Rx Confirmed 06/08/25] aspirin 81 mg tablet,delayed release 81 mg PO BID #60 tabs 05/23/25 [Rx Confirmed 06/08/25] doxycycline hyclate 100 mg tablet 100 mg PO BID #14 tabs 05/23/25 [Rx Confirmed 06/08/25] gabapentin 300 mg capsule 300 mg PO .qhs #30 caps 05/23/25 [Rx Confirmed 06/08/25] oxycodone 5 mg tablet 5 mg PO Q6H PRN pain #28 tabs 05/23/25 [Rx Confirmed 06/08/25] sennosides 8.6 mg-docusate sodium 50 mg tablet (Senna-S) 1 tab-cap PO QDAY #30 tabs 05/23/25 [Rx Confirmed 06/08/25] meloxicam 7.5 mg tablet 7.5 mg PO QDAY #45 tabs 06/08/25 [Rx] Exam Exam Patient is in no acute distress and is cooperative with the examination today. Patient has a normal mood and affect. Breathing is nonlabored. In no respiratory distress. Bilateral extremities were evaluated and demonstrates sensation intact to light touch. Palpable pedal pulses are present. No significant edema is present. Right hip incision is clean dry and intact Assessment and Plan Problem List (1) Painful total knee replacement, right: Status: Acute (2) Arthritis of right knee: Status: Acute (3) Arthritis of right hip: Status: Acute Plan: Patient is a 79-year-old female with a right hip arthritis of significant severity. She is doing well status post right total hip replacement - We will see her back in 4 weeks Advanced Care Planning Discussion Advance care planning discussed with:: patient Office Procedures GNS Level of Care Nursing/Assessment Patient Status: Established Patient Nursing Assessment/Reassesment: Medication Reconciliation, Update PMH in EMR and Vital Signs Coordination of Care: Complex Care and Chronic Disease 1-5, Education Complex Pt/Fam, Consent,records obtained, informed consent, Results/Orders obtained and Staff clarify orders Established Patient Charge Established Patient Point Assignment: 95 Established Patient Point Charge: EP Level 3 (80-115) MA Intake Visit Data Collection New Patient or Established: Established Patient (seen at [facility] within 3 years) Reason for Visit:: POST OP Seen by Clinical Staff ONLY (RN/MA): No Verbal consent obtained for Telemed visit?: No Industrial Manufacturing Technician Required: No PCP or OBGYN visit in last 3 months: Yes Hx Now: No Do You Feel Safe at Home: Yes Authorities Contacted: N/A Questionairres Past Medical History Past Medical History Have you ever been diagnosed with any of the following: Neurological Problems Seizures: No Cardiology Problems Hypercholesterolemia: Yes Congestive Heart Failure: No Hypertension: Yes Respiratory Problems Chronic Obstructive Pulmonary Disease (COPD): No Smoking: No Smoking Cessation Counseling: No Smoking Exposure: No Stomache/Intestinal Problems Hepatitis: No Genital/Urinary Problems Renal Disease: No Reproductive Problems Previous Pregnancies: Yes (2) Musculoskeletal Problems Arthritis: Yes Degenerative Disk Disease: Yes (fell from ladder twice) Head,Eye,Nose,Throat Problems Cataracts: Yes (bilaterally) Endocrine Problems Diabetes Mellitus Type 1: No Diabetes Mellitus Type 2: No Other Problems Shingles: Yes (2018) Blood Transfusions: No Blood Transfusion Reaction: No Anesthesia Reactions: No Chicken Pox: Yes Measles: Yes Cancer: No Surgical History Total Knee Replacement: Yes (2 YEARS AGO BY ) Subjective Visit Visit for: follow up visit, post op #1, hip and knee Immunization / Flu Flu Vaccine in the Last 12 Months: No Flu Vaccine Exclusion Criteria: No Exclusion Criteria History of Present Illness Chief complaint: Right hip pain Patient is 2 weeks status post right total hip replacement. She is doing well Personal History Occupation: RETIRED Red flag PMH: none Pain Pain level (0-10): 4 Pain duration: COMES AND GOES Ambulatory data Ambulatory device: cane Treatments Number of previous injections: 1 Improvement with previous injections: No Improvement with PT: No Improvement with NSAIDS: no Review of Systems Review of Systems: All systems negative unless otherwise noted in HPI.
[2025-06-08 14:52] VITALS: BP 132/75; PULSE 66; RESP 18; TEMP 36.6; O2SAT 98; BMI 20.7
== END 2025-06-08 15:09 | disposition home or self-care (01) ==
LOC: HODSRG 14:29
PROVIDERS: PCP Internal Medicine; Referring Provider Internal Medicine; Supervising Provider Orthopaedic Surgery Adult Reconstructive Orthopaedic Surgery; Visit Provider Orthopaedic Surgery Adult Reconstructive Orthopaedic Surgery
DX: T84.84XA Pain due to internal orthopedic prosthetic devices, implants and grafts, initial encounter (principal); Y84.9 Medical procedure, unspecified as the cause of abnormal reaction of the patient, or of later complication, without mention of misadventure at the time of the procedure; M17.11 Unilateral primary osteoarthritis, right knee; M16.11 Unilateral primary osteoarthritis, right hip; I10 Essential (primary) hypertension; E78.00 Pure hypercholesterolemia, unspecified
CPT/HCPCS: 99213; G0463

== ENCOUNTER 2025-07-05 10:34 | Outpatient (AMB) | payer MEDICARE, BC, SELFPAY ==
[2025-07-05 10:58] VITALS: BP 162/86; PULSE 62; RESP 19; TEMP 36.6; O2SAT 96; BMI 20.7
--- NOTE | 2025-07-05 10:58 | ORTHONT_ITS ---
Vital signs 07/05/25 10:58 Height 1.63 m Height Method Stated Weight 55.055 kg Weight Measurement Method Standing Scale BMI 20.7 BP 162/86 H Blood Pressure Source Automatic Cuff Blood Pressure Location Right Upper Arm Position Sitting Respiration 19 Pulse 62 Pulse Source Monitor Temp 97.9 F Temp Source Temporal Artery Scan Pulse Oximetry (%) 96 Oxygen Delivery Method Room Air Med/Allergies Allergies & Medications Allergies Penicillins Allergy (Intermediate, Verified 07/05/25 10:59) Hives Medication Reconciliation losartan 50 mg tablet 50 mg PO QDAY 08/18/24 [History Confirmed 07/05/25] acetaminophen 500 mg tablet (Acetaminophen Extra Strength) 1,000 mg (2 x 500 mg) PO Q6H PRN pain #90 tabs 05/23/25 [Rx Confirmed 07/05/25] aspirin 81 mg tablet,delayed release 81 mg PO BID #60 tabs 05/23/25 [Rx Confirmed 07/05/25] doxycycline hyclate 100 mg tablet 100 mg PO BID #14 tabs 05/23/25 [Rx Confirmed 07/05/25] gabapentin 300 mg capsule 300 mg PO .qhs #30 caps 05/23/25 [Rx Confirmed 0 07/05/25] oxycodone 5 mg tablet 5 mg PO Q6H PRN pain #28 tabs 05/23/25 [Rx Confirmed 07/05/25] sennosides 8.6 mg-docusate sodium 50 mg tablet (Senna-S) 1 tab-cap PO QDAY #30 tabs 05/23/25 [Rx Confirmed 07/05/25] meloxicam 7.5 mg tablet 7.5 mg PO QDAY #45 tabs 06/08/25 [Rx Confirmed 07/05/25] Exam Exam . Patient is in no acute distress and is cooperative with the examination today. Patient has a normal mood and affect. Breathing is nonlabored. In no respiratory distress. Bilateral extremities were evaluated and demonstrates sensation intact to light touch. Palpable pedal pulses are present. No significant edema is present. Right hip incision is clean dry and intact. Leg lengths are equal Assessment and Plan Problem List (1) Painful total knee replacement, right: Status: Acute (2) Arthritis of right knee: Status: Acute (3) Arthritis of right hip: Status: Acute Plan: Patient is a 79-year-old female with a right hip arthritis of significant severity. She is doing well status post right total hip replacement She is significant left knee arthritis. Her last x-rays were over 3 years old. Will get new x-rays of her left knee as well as her right Advanced Care Planning Discussion Advance care planning discussed with:: patient Office Procedures GNS Level of Care Nursing/Assessment Patient Status: Established Patient Nursing Assessment/Reassesment: Medication Reconciliation, Update PMH in EMR and Vital Signs Coordination of Care: Complex Care and Chronic Disease 1-5, Education Complex Pt/Fam, Consent,records obtained, informed consent, Results/Orders obtained and Staff clarify orders Established Patient Charge Established Patient Point Assignment: 95 Established Patient Point Charge: EP Level 3 (80-115) MA Intake Visit Data Collection New Patient or Established: Established Patient (seen at [facility] within 3 years) Reason for Visit:: POST OP Seen by Clinical Staff ONLY (RN/MA): No Verbal consent obtained for Telemed visit?: No 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 PCP or OBGYN visit in last 3 months: Yes Hx Now: No Do You Feel Safe at Home: Yes Authorities Contacted: N/A Questionairres Past Medical History Past Medical History Have you ever been diagnosed with any of the following: Neurological Problems Seizures: No Cardiology Problems Hypercholesterolemia: No Congestive Heart Failure: No Hypertension: Yes Respiratory Problems Chronic Obstructive Pulmonary Disease (COPD): No Smoking: No Smoking Cessation Counseling: No Smoking Exposure: No Stomache/Intestinal Problems Hepatitis: No Genital/Urinary Problems Renal Disease: No Reproductive Problems Previous Pregnancies: Yes (2) Musculoskeletal Problems Arthritis: Yes Degenerative Disk Disease: Yes (fell from ladder twice) Head,Eye,Nose,Throat Problems Cataracts: Yes (bilaterally) Endocrine Problems Diabetes Mellitus Type 1: No Diabetes Mellitus Type 2: No Other Problems Shingles: Yes (2018) Blood Transfusions: No Blood Transfusion Reaction: No Anesthesia Reactions: No Chicken Pox: Yes Measles: Yes Cancer: No Surgical History Total Knee Replacement: Yes (2 YEARS AGO BY ) Subjective Visit Visit for: follow up visit, post op #1, hip and knee Immunization / Flu Flu Vaccine in the Last 12 Months: No Flu Vaccine Exclusion Criteria: No Exclusion Criteria History of Present Illness Chief complaint: Right hip pain Patient is 6 weeks status post right total hip replacement. She is doing well Personal History Occupation: RETIRED Red flag PMH: none Pain Pain level (0-10): 4 Pain duration: COMES AND GOES Ambulatory data Ambulatory device: cane Treatments Number of previous injections: 1 Improvement with previous injections: No Improvement with PT: No Improvement with NSAIDS: no Review of Systems Review of Systems: All systems negative unless otherwise noted in HPI.
--- NOTE | 2025-07-05 11:10 | XR_ITS ---
Examination: Bilateral AP knees single view Left knee PA lateral axial 3 views TECHNIQUE: Bilateral AP knees standing single view Left knee PA standing flexion, standing lateral, axial left knee 3 views total 4 views Date and time: July 05, 2025 1118 hours INDICATIONS: Left knee pain beginning 2019, right knee replacement 2021. FINDINGS: Prominent osteopenia. Total right knee arthroplasty with satisfactory alignment, no loosening of the prosthetic components Advanced narrowing medial joint space left knee Significant osteoarthritis lateral and patellofemoral joints left knee IMPRESSION: Advanced left knee tricompartment osteoarthritis including severe narrowing medial joint space
--- NOTE | 2025-07-05 11:10 | XR_ITS ---
Examination:Right hip AP, lateral, AP pelvis 3 views Technique: Hip AP lateral, AP pelvis, 3 views Exam date and time:July 05, 2025 1118 hours INDICATIONS: Status post right hip replacement 6 weeks ago, comparison 05/23/2025. FINDINGS: Total right hip arthroplasty. Satisfactory alignment. Moderate osteoarthritis left hip joints greater trochanteric bursitis left hip No hip or pelvic fracture IMPRESSION: Total right hip arthroplasty with satisfactory alignment
== END 2025-07-05 11:14 | disposition home or self-care (01) ==
LOC: HODSRG 10:34
PROVIDERS: PCP Internal Medicine; Referring Provider Internal Medicine; Supervising Provider Orthopaedic Surgery Adult Reconstructive Orthopaedic Surgery; Visit Provider Orthopaedic Surgery Adult Reconstructive Orthopaedic Surgery
DX: T84.84XD Pain due to internal orthopedic prosthetic devices, implants and grafts, subsequent encounter (principal); Z96.651 Presence of right artificial knee joint; M17.0 Bilateral primary osteoarthritis of knee; M16.11 Unilateral primary osteoarthritis, right hip; I10 Essential (primary) hypertension; E78.00 Pure hypercholesterolemia, unspecified; Z96.641 Presence of right artificial hip joint
CPT/HCPCS: 73502; 73564; 99213; G0463

== ENCOUNTER → 2025-07-09 | Outpatient (CLI) | payer MEDICARE, BC, SELFPAY ==
[2025-07-09 08:14] LABS: Collection Type, Urine Clean Catch
[2025-07-09 08:42] LABS: Basophils # (Auto) 0.1 Thou/mm3 (0.0-0.2); Basophils % (Auto) 1 % (0-2.5); Eosinophils # (Auto) 0.2 Thou/mm3 (0.0-0.5); Eosinophils % (Auto) 4 % (0-10); Hematocrit 39.0 % (36.0-46.0); Hemoglobin 12.5 g/dL (12.0-16.0); Immature Granulocytes Auto 0.01 Thou/mm3 (0.00-0.00); Lymphocytes # (Auto) 1.2 Thou/mm3 (1.0-4.8); Lymphocytes % (Auto) 28 % (10-50); Mean Corpuscular HGB Conc 32.1 g/dl (31.0-37.0); Mean Corpuscular Hemoglobin 28.7 pg (25.0-35.0); Mean Corpuscular Volume 90 fL (80-100); Monocytes # (Auto) 0.3 Thou/mm3 (0.0-0.8); Monocytes % (Auto) 8 % (0-12); Neutrophils # (Auto) 2.6 Thou/mm3 (1.8-7.7); Neutrophils % (Auto) 59 % (37-80); Nucleated Red Blood Cell # 0.00 Thou/mm3 (0.00-0.00); Nucleated Red Blood Cell % 0 /100 WBC (0); Platelet Count 297 Thou/mm3 (140-440); RDW Standard Deviation 42.2 fL (36.4-46.3); Red Blood Count 4.35 Miln/mm3 (4.00-5.20); White Blood Count 4.4 Thou/mm3 (3.6-11.0)
[2025-07-09 08:44] LABS: Glucose Estimated Average 114 mg/dL (80-131); Hemoglobin A1C 5.6 % Hgb (4.8-6.0)
[2025-07-09 08:58] LABS: Alanine Aminotransferase 13 U/L (10-49); Albumin, Serum 4.4 gm/dL (3.4-4.8); Albumin/Globulin Ratio 2.1 (1.2-2.2); Alkaline Phosphatase 79 U/L (46-116); Anion Gap 9 (7-16); Aspartate Amino Transferase 20 U/L (0-34); BUN/Creatinine Ratio 18 Ratio (12-20); Bilirubin,Total 1.9 mg/dL (0.3-1.2); Blood Urea Nitrogen 16 mg/dL (9-23); Calcium 9.4 mg/dL (8.3-10.6); Calcium (Corrected) 9.4 mg/dL (8.5-10.1); Carbon Dioxide 29.1 mMol/L (20.0-31.0); Cardiac Risk Estimate 2.9 RATIO (3.7-5.6); Chloride 107 mMol/L (98-107); Cholesterol 169 mg/dL (132-200); Creatinine (Component) 0.9 mg/dL (0.6-1.3); Globulin 2.1 gm/dL (2.3-3.5); Glucose 98 mg/dL (74-106); HDL Cholesterol 58 mg/dL (40-60); LDL Cholesterol,Calculated 81 mg/dL (0-130); Osmolality,Calculated 289 (275-295); Potassium 4.8 mMol/L (3.4-5.1); Sodium 145 mMol/L (136-145); Thyroid Stimulating Hormone 0.74 uIU/mL (0.55-4.78); Total Protein 6.5 gm/dL (5.7-8.2); Triglycerides 149 mg/dL (30-150); Uric Acid 5.0 mg/dL (3.1-7.8); eGFR > 60 See Note
[2025-07-09 09:08] LABS: Vitamin B12 337 pg/mL (211-911); Vitamin D 25 Hydroxy Total 37.0 ng/mL (7.3-40.2)
[2025-07-09 09:22] LABS: Bilirubin,Urine Negative (Negative); Blood,Urine Negative (Negative); Clarity,Urine Clear (Clear/Hazy); Color,Urine Yellow (Lt Yel-Yel); Glucose, Urine Negative (Negative); Ketones,Urine Negative (Negative); Leukocyte Esterase,Urine Negative (Negative); Nitrite,Urine Negative (Negative); PH,Urine 6.0 (5.0-7.0); Protein,Urine Negative (Neg - Trace); RBC,Urine 2 /hpf (0-3); Specific Gravity,Urine 1.022 (1.001-1.035); Squamous Epithelial Cell,Urine 3 /hpf (0-5); Urobilinogen,Urine Negative mg/dL (0.0-1.0); WBC,Urine 2 /hpf (0-5)
== END | disposition home or self-care (01) ==
LOC: COPL 07:29
PROVIDERS: PCP Internal Medicine; Referring Provider Internal Medicine; Visit Provider Internal Medicine
DX: Z00.00 Encounter for general adult medical examination without abnormal findings (principal); I10 Essential (primary) hypertension
CPT/HCPCS: 36415; 80053; 80061; 81001; 82306; 82607; 83036; 84443; 84550; 85025

== ENCOUNTER 2025-07-31 08:40 | Outpatient (AMB) | payer MEDICARE, BC, SELFPAY ==
[2025-07-31 09:11] VITALS: BP 174/82; PULSE 54; RESP 19; TEMP 36.5; O2SAT 96; BMI 20.9
--- NOTE | 2025-07-31 09:11 | PD.ORTHCLVIS ---
Vital signs 07/31/25 09:11 Height 1.63 m Height Method Stated Weight 55.82 kg Weight Measurement Method Standing Scale BMI 20.9 BP 174/82 H Blood Pressure Source Automatic Cuff Blood Pressure Location Left Upper Arm Position Sitting Respiration 19 Pulse 54 L Pulse Source Monitor Temp 97.7 F Temp Source Temporal Artery Scan Pulse Oximetry (%) 96 Oxygen Delivery Method Room Air Med/Allergies Allergies & Medications Allergies Penicillins Allergy (Intermediate, Verified 07/31/25 09:12) Hives Medication Reconciliation losartan 50 mg tablet 50 mg PO QDAY 08/18/24 [History Confirmed 07/31/25] acetaminophen 500 mg tablet (Acetaminophen Extra Strength) 1,000 mg (2 x 500 mg) PO Q6H PRN pain #90 tabs 05/23/25 [Rx Confirmed 07/31/25] aspirin 81 mg tablet,delayed release 81 mg PO BID #60 tabs 05/23/25 [Rx Confirmed 07/31/25] doxycycline hyclate 100 mg tablet 100 mg PO BID #14 tabs 05/23/25 [Rx Confirmed 07/31/25] gabapentin 300 mg capsule 300 mg PO .qhs #30 caps 05/23/25 [Rx Confirmed 07/31/25] oxycodone 5 mg tablet 5 mg PO Q6H PRN pain #28 tabs 05/23/25 [Rx Confirmed 07/31/25] sennosides 8.6 mg-docusate sodium 50 mg tablet (Senna-S) 1 tab-cap PO QDAY #30 tabs 05/23/25 [Rx Confirmed 07/31/25] meloxicam 7.5 mg tablet 7.5 mg PO QDAY #45 tabs 06/08/25 [Rx Confirmed 07/31/25] Exam Exam . Patient is in no acute distress and is cooperative with the examination today. Patient has a normal mood and affect. Breathing is nonlabored. In no respiratory distress. Bilateral extremities were evaluated and demonstrates sensation intact to light touch. Palpable pedal pulses are present. No significant edema is present. Right hip incision is clean dry and intact. Leg lengths are equal Left knee exam palpation medially. Range of motion 0 to 105 degrees. X-rays of the bilateral hips and knees were reviewed. The hip demonstrates a right cementless total hip replacement good alignment good position. For the left knee, she has significant left knee arthritis with complete obliteration of medial joint space Assessment and Plan Problem List (1) Arthritis of right knee: Status: Acute (2) Arthritis of right hip: Status: Acute (3) Arthritis of left knee: Status: Acute Plan Plan: ASSESSMENT AND PLAN 1. Left knee pain: The left knee exhibits [id number] contact, particularly on the medial side, while the lateral aspect remains relatively unaffected. Given her overall health and physical condition, she is an excellent candidate for a partial knee replacement. However, there is a possibility that the condition could progress to the other side. The revision rate for partial knee replacements is higher than that for total knee replacements, but she is still considered a suitable candidate for the procedure. Maintain an active lifestyle. If the left knee becomes problematic, consider cortisone or hyaluronic acid injections. Cortisone is preferred due to its immediate relief effect, while hyaluronic acid (rooster comb) takes about a month to provide relief. If opting for surgery, a partial knee replacement is recommended over a total knee replacement due to its less invasive nature and faster recovery time. The final decision regarding the type of surgery will be hers. She declined the offer of an injection today and will contact us when further assistance is required. Advanced Care Planning Discussion Advance care planning discussed with:: patient Office Procedures GNS Level of Care Nursing/Assessment Patient Status: Established Patient Nursing Assessment/Reassesment: Medication Reconciliation, Update PMH in EMR and Vital Signs Coordination of Care: Complex Care and Chronic Disease 1-5, Education Complex Pt/Fam, Consent,records obtained, informed consent, Results/Orders obtained and Staff clarify orders Established Patient Charge Established Patient Point Assignment: 95 Established Patient Point Charge: EP Level 3 (80-115) MA Intake Visit Data Collection New Patient or Established: Established Patient (seen at [facility] within 3 years) Reason for Visit:: POST OP Seen by Clinical Staff ONLY (RN/MA): No Verbal consent obtained for Telemed visit?: No 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 PCP or OBGYN visit in last 3 months: Yes Hx Now: No Do You Feel Safe at Home: Yes Authorities Contacted: N/A Questionairres Past Medical History Past Medical History Have you ever been diagnosed with any of the following: Neurological Problems Seizures: No Cardiology Problems Hypercholesterolemia: No Congestive Heart Failure: No Hypertension: Yes Respiratory Problems Chronic Obstructive Pulmonary Disease (COPD): No Smoking: No Smoking Cessation Counseling: No Smoking Exposure: No Stomache/Intestinal Problems Hepatitis: No Genital/Urinary Problems Renal Disease: No Reproductive Problems Previous Pregnancies: Yes (2) Musculoskeletal Problems Arthritis: Yes Degenerative Disk Disease: Yes (fell from ladder twice) Head,Eye,Nose,Throat Problems Cataracts: Yes (bilaterally) Endocrine Problems Diabetes Mellitus Type 1: No Diabetes Mellitus Type 2: No Other Problems Shingles: Yes (2018) Blood Transfusions: No Blood Transfusion Reaction: No Anesthesia Reactions: No Chicken Pox: Yes Measles: Yes Cancer: No Surgical History Total Knee Replacement: Yes (2 YEARS AGO BY ) Subjective Visit Visit for: follow up visit, post op #1, hip and knee Immunization / Flu Flu Vaccine in the Last 12 Months: No Flu Vaccine Exclusion Criteria: No Exclusion Criteria History of Present Illness Chief complaint: Right hip pain HISTORY OF PRESENT ILLNESS I, Law Mcbride, have obtained verbal consent from the patient, to be recorded during this encounter which may include, but not limited to, medical history, examination, treatment plans, and relevant health information.? Patient was informed that recording will be read and reviewed by myself before inclusion in the medical chart. The patient presents for left knee pain. She has been experiencing intermittent left knee pain for several years. She was last seen 3 years ago for a right knee replacement. Dr. Taylor previously advised her to undergo surgery for both knees. She has not received any injections in her left knee but has had them in her right knee previously. She is currently managing her pain with Tylenol Arthritis medication and prefers to avoid additional injections. She has undergone back surgery and is aware of her limited bending capacity. Despite daily practice, she struggles with tasks such as putting on her socks, which she finds frustrating. She is unsure if her back condition is contributing to her inability to bend. She experiences mild back pain when standing up after attempting to relax and feels significant tension on one side of her back muscle. She has also had hip and knee surgeries. PAST SURGICAL HISTORY: Back surgery Right knee replacement Hip surgery Personal History Occupation: RETIRED Red flag PMH: none Pain Pain level (0-10): 4 Pain duration: COMES AND GOES Ambulatory data Ambulatory device: cane Treatments Number of previous injections: 1 Improvement with previous injections: No Improvement with PT: No Improvement with NSAIDS: no Review of Systems Review of Systems: All systems negative unless otherwise noted in HPI.
== END 2025-07-31 09:22 | disposition home or self-care (01) ==
LOC: HODSRG 08:40
PROVIDERS: PCP Internal Medicine; Referring Provider Internal Medicine; Supervising Provider Orthopaedic Surgery Adult Reconstructive Orthopaedic Surgery; Visit Provider Orthopaedic Surgery Adult Reconstructive Orthopaedic Surgery
DX: M17.0 Bilateral primary osteoarthritis of knee (principal); M16.11 Unilateral primary osteoarthritis, right hip; M25.562 Pain in left knee; I10 Essential (primary) hypertension
CPT/HCPCS: 99213; G0463

== ENCOUNTER 2025-10-18 14:18 | Outpatient (AMB) | payer MEDICARE, BC, SELFPAY ==
--- NOTE | 2025-10-18 14:36 | PD.ORTHCLVIS ---
Vital signs 10/18/25 14:42 Height 1.63 m Height Method Stated Weight 56.245 kg Weight Measurement Method Standing Scale BMI 21.2 BP 148/92 H Blood Pressure Source Automatic Cuff Blood Pressure Location Left Upper Arm Position Sitting Respiration 18 Pulse 63 Pulse Source Monitor Temp 96.7 F L Temp Source Temporal Artery Scan Pulse Oximetry (%) 97 Oxygen Delivery Method Room Air Med/Allergies Allergies & Medications Allergies Penicillins Allergy (Intermediate, Verified 10/18/25 14:42) Hives Medication Reconciliation losartan 50 mg tablet 50 mg PO QDAY 08/18/24 [History Confirmed 10/18/25] acetaminophen 500 mg tablet (Acetaminophen Extra Strength) 1,000 mg (2 x 500 mg) PO Q6H PRN pain #90 tabs 05/23/25 [Rx Confirmed 10/18/25] aspirin 81 mg tablet,delayed release 81 mg PO BID #60 tabs 05/23/25 [Rx Confirmed 10/18/25] doxycycline hyclate 100 mg tablet 100 mg PO BID #14 tabs 05/23/25 [Rx Confirmed 10/18/25] gabapentin 300 mg capsule 300 mg PO .qhs #30 caps 05/23/25 [Rx Confirmed 10/18/25] oxycodone 5 mg tablet 5 mg PO Q6H PRN pain #28 tabs 05/23/25 [Rx Confirmed 10/18/25] sennosides 8.6 mg-docusate sodium 50 mg tablet (Senna-S) 1 tab-cap PO QDAY #30 tabs 05/23/25 [Rx Confirmed 10/18/25] meloxicam 7.5 mg tablet 7.5 mg PO QDAY #45 tabs 06/08/25 [Rx Confirmed 10/18/25] Exam Exam Patient is a 72-year-old female with a right hip replacement and a right total knee replacement as well as left knee arthritis. She reports that she is doing well from the pain. She has some issues with her left hip which is also improved recently. Will continue to watch her and see how she does. We will continue to treat her knee nonoperatively Assessment and Plan Problem List (1) Arthritis of right knee: Status: Acute (2) Arthritis of right hip: Status: Acute (3) Arthritis of left knee: Status: Acute (4) Arthritis of right knee: Status: Acute (5) Arthritis of right hip: Status: Acute (6) Arthritis of left knee: Status: Acute Plan Plan: ASSESSMENT AND PLAN 1. Left knee pain: The left knee exhibits suts-ut-cyir contact, particularly on the medial side, while the lateral aspect remains relatively unaffected. Given her overall health and physical condition, she is an excellent candidate for a partial knee replacement. However, there is a possibility that the condition could progress to the other side. The revision rate for partial knee replacements is higher than that for total knee replacements, but she is still considered a suitable candidate for the procedure. Maintain an active lifestyle. If the left knee becomes problematic, consider cortisone or hyaluronic acid injections. Cortisone is preferred due to its immediate relief effect, while hyaluronic acid (rooster comb) takes about a month to provide relief. If opting for surgery, a partial knee replacement is recommended over a total knee replacement due to its less invasive nature and faster recovery time. The final decision regarding the type of surgery will be hers. She declined the offer of an injection today and will contact us when further assistance is required. Advanced Care Planning Discussion Advance care planning discussed with:: patient Office Procedures GNS Level of Care Nursing/Assessment Patient Status: Established Patient Nursing Assessment/Reassesment: Medication Reconciliation, Update PMH in EMR and Vital Signs Coordination of Care: Complex Care and Chronic Disease 1-5, Education Complex Pt/Fam, Consent,records obtained, informed consent, Results/Orders obtained and Staff clarify orders Established Patient Charge Established Patient Point Assignment: 95 Established Patient Point Charge: Level 3 (80-115) MA Intake Visit Data Collection New Patient or Established: Established Patient (seen at [facility] within 3 years) Reason for Visit:: LEFT HIP PAIN FOLLOW UP Seen by Clinical Staff ONLY (RN/MA): No Verbal consent obtained for Telemed visit?: No [employer] Customer Experience Advisor Required: No PCP or OBGYN visit in last 3 months: Yes Hx Now: No Do You Feel Safe at Home: Yes Authorities Contacted: N/A Questionairres Past Medical History Past Medical History Have you ever been diagnosed with any of the following: Neurological Problems Seizures: No Cardiology Problems Hypercholesterolemia: No Congestive Heart Failure: No Hypertension: Yes Respiratory Problems Chronic Obstructive Pulmonary Disease (COPD): No Smoking: No Smoking Cessation Counseling: No Smoking Exposure: No Stomache/Intestinal Problems Hepatitis: No Genital/Urinary Problems Renal Disease: No Reproductive Problems Previous Pregnancies: Yes (2) Musculoskeletal Problems Arthritis: Yes Degenerative Disk Disease: Yes (fell from ladder twice) Head,Eye,Nose,Throat Problems Cataracts: Yes (bilaterally) Endocrine Problems Diabetes Mellitus Type 1: No Diabetes Mellitus Type 2: No Other Problems Shingles: Yes (2018) Blood Transfusions: No Blood Transfusion Reaction: No Anesthesia Reactions: No Chicken Pox: Yes Measles: Yes Cancer: No Surgical History Total Knee Replacement: Yes (2 YEARS AGO BY ) Subjective Visit Visit for: follow up visit, post op #1, hip and knee Immunization / Flu Flu Vaccine in the Last 12 Months: No Flu Vaccine Exclusion Criteria: No Exclusion Criteria History of Present Illness Chief complaint: Right hip pain HISTORY OF PRESENT ILLNESS ILaw, have obtained verbal consent from the patient, to be recorded during this encounter which may include, but not limited to, medical history, examination, treatment plans, and relevant health information.? Patient was informed that recording will be read and reviewed by myself before inclusion in the medical chart. The patient presents for left knee pain. She has been doing well from her right hip replacement. She has a pain in her left hip which is now resolved. This occurred after some dental cleaning. The pain is improving and she has no pain in her right hip replacement Personal History Occupation: RETIRED Red flag PMH: none Pain Pain level (0-10): 4 Pain duration: COMES AND GOES Ambulatory data Ambulatory device: cane Treatments Number of previous injections: 1 Improvement with previous injections: No Improvement with PT: No Improvement with NSAIDS: no Review of Systems Review of Systems: All systems negative unless otherwise noted in HPI.
[2025-10-18 14:42] VITALS: BP 148/92; PULSE 63; RESP 18; TEMP 35.9; O2SAT 97; BMI 21.2
== END 2025-10-18 14:46 | disposition home or self-care (01) ==
LOC: HODSRG 14:18
PROVIDERS: PCP Internal Medicine; Referring Provider Internal Medicine; Supervising Provider Orthopaedic Surgery Adult Reconstructive Orthopaedic Surgery; Visit Provider Orthopaedic Surgery Adult Reconstructive Orthopaedic Surgery
DX: M25.562 Pain in left knee (principal); Z96.641 Presence of right artificial hip joint
CPT/HCPCS: 99213; G0463